=== PATIENT | male | born 1980 | race Caucasian/White ===

== ENCOUNTER 2017-04-17 18:17 | Emergency (ER) | payer OTHER ==
[2017-04-17 18:25] VITALS: BP 125/83; PULSE 81; TEMP 98.4; BMI 28.1
[2017-04-17] MEDS ORDERED: ONDANSETRON 4 MG/2 ML VIAL IVPUSH STA ×2 (20:02→21:39)
[2017-04-17] MEDS ORDERED: PANTOPRAZOLE SODIUM 40 MG in SODIUM CHLORIDE 100 ML IVPB ONE (20:02)
[2017-04-17] MEDS ORDERED: SODIUM CHLORIDE 1,000 ML IV STA ×2 (20:02→20:03)
--- NOTE | 2017-04-17 20:03 | PDOC ---
History of Present Illness - General History Source: Patient Exam Limitations: No Limitations - History of Present Illness Initial Comments: 04/17/17 20:41 The patient is a 37 year old male with significant past medical history of percocet use, hypertension, right foot tumor, diverticulitis, IBS, gastric ulcers, herniated disc, depression who presents to the ED for 3 weeks of abdominal pain, nausea and vomiting. Patient describes pain as sharp, bloating and 9/10 with associated fever, chills, and hot flashes. States he noted some bright red blood per rectum. Denies diarrhea. Patient reports he is visiting from [place] and just arrived here 4 days ago. He also states he plans on going to [facility] in 9 days. Patient also reports 2 weeks ago he developed SOB and chest pain, which he describes as someone sitting on my chest that lasted for about 5 minutes. He reports associated left arm numbness. States at that time, he went to the hospital in [place], where he had x-rays done and was told nothing was wrong. Patient reports he no longer has the chest pain, SOB and left arm numbness. Patient reports 8 months ago he was prescribed percocet 2 tablets every 6-8 hours from his doctor in [place]. States he has been trying to avoid the percocet and since February, he was prescribed norco. However, he is still experiencing symptoms of withdraw. Allergies: naproxen, NSAIDS, compazine Social History: Current smoker (ppd for 16 years). 1g prescription marijuana daily. Denies any other recreational drug use. Denies etoh use. Past Surgical History: 8 inch colon reduction PMD in [place] <Nadege Mccarthy - Last Filed: 04/17/17 20:46> - General History Source: Patient <Anshu Reinoso - Last Filed: 04/17/17 22:29> - General Chief Complaint: Chest Pain Stated Complaint: CHEST PAIN Time Seen by Provider: 04/17/17 20:01 Past History <Nadege Mccarthy - Last Filed: 04/17/17 20:46> - Past Medical History Cancer: (TUMOR RT FOOT) GI Disorders: Yes (diverticulitis, ulcer, IBS) Other medical history: PERCOCET USE - Surgical History Abdominal Surgery: Yes (colon sx,) - Psycho/Social/Smoking Cessation Hx Suicidal Ideation: No Smoking History: Current every day smoker Number of Cigarettes Smoked Daily: 20 Information on smoking cessation initiated: Yes 'Breaking Loose' booklet given: 04/17/17 Hx Alcohol Use: No Drug/Substance Use Hx: No Substance Use Type: None <Anshu Reinoso - Last Filed: 04/17/17 22:29> - Past Medical History Allergies/Adverse Reactions: Allergies Allergy/AdvReac Type Severity Reaction Status Date / Time naproxen Allergy Verified 04/17/17 18:25 NSAIDS (Non-Steroidal Allergy Verified 04/17/17 18:25 Anti-Inflamma prochlorperazine Allergy Verified 04/17/17 18:25 [From Compazine] prochlorperazine edisylate Allergy Verified 04/17/17 18:25 [From Compazine] prochlorperazine maleate Allergy Verified 04/17/17 18:25 [From Compazine] Home Medications: Ambulatory Orders Ondansetron [Zofran *Odt*] 4 mg SL TID #30 od.tablet 04/17/17 Oxycodone HCl/Acetaminophen [Percocet 10-325 mg Tablet] 1 each PO Q4HWA #10 tablet MDD 4 04/17/17 Pantoprazole Sodium [Protonix -] 40 mg PO DAILY 04/17/17 Review of Systems - Review of Systems Able to Perform ROS?: Yes Comments:: 04/17/17 20:41 CONSTITUTIONAL: +fever, chills, hot flashes Absent: no fatigue EYES: Absent: visual changes ENT: Absent: ear pain, no sore throat CARDIOVASCULAR: +chest pain Absent: no palpitations RESPIRATORY: +SOB Absent: cough GI: +abdominal pain, nausea, vomiting, blood per rectum Absent: no constipation, no diarrhea GENITOURINARY: Absent: dysuria, no frequency, no hematuria MUSCULOSKELETAL: Absent: back pain, no arthralgia, no myalgia SKIN: Absent: rash NEURO: +left arm numbness Absent: headache <FrediarrNoman garcíata - Last Filed: 04/17/17 20:46> *Physical Exam - Vital Signs Last Vital Signs Temp Pulse Resp BP Pulse Ox 98.4 F 81 18 125/83 98 04/17/17 18:22 04/17/17 18:22 04/17/17 18:22 04/17/17 18:22 04/17/17 18:22 - Physical Exam Comments: 04/17/17 20:42 GENERAL: Well-appearing, well-nourished. Mild distress. Diaphoretic HEENT: Normocephalic, atraumatic. PERRL, EOM intact. Dry oral mucosa. CARDIOVASCULAR: Normal S1, S2. Regular rate and rhythm. PULMONARY: Clear to auscultation bilaterally. ABDOMEN: Soft, non-distended, Mild diffuse tenderness. No rebound or guarding. Well healed right lower quadrant surgical wound. EXTREMITIES: No gross motor deficits. No gross deformities. SKIN: Warm, dry. No rash NEUROLOGICAL: No focal neurological deficits. <Nadege Mccarthy - Last Filed: 04/17/17 20:46> - Vital Signs Last Vital Signs Temp Pulse Resp BP Pulse Ox 98.4 F 81 18 125/83 98 04/17/17 18:22 04/17/17 18:22 04/17/17 18:22 04/17/17 18:22 04/17/17 18:22 <Anshu Reinoso - Last Filed: 04/17/17 22:29> Heart Score/ECG Review - ECG Impressions Comment:: 04/17/17 20:42 NSR @74bpm <Nadege Mccarthy - Last Filed: 04/17/17 20:46> ED Treatment Course - LABORATORY CBC & Chemistry Diagram: 04/17/17 21:15 04/17/17 21:15 <Anshu Reinoso - Last Filed: 04/17/17 22:29> Medical Decision Making - Medical Decision Making 04/17/17 22:29 Dr. Reinoso: The scribe's documentation has been prepared under my direction and personally reviewed by me in its entirery. I confirm that the note above accurately reflects all work, treatment, procedures, and medical decision making performed by me. <Anshu Reinoso - Last Filed: 04/17/17 22:29> *DC/Admit/Observation/Transfer - Attestations Scribe Attestion: 04/17/17 20:42 Documentation prepared by Nadege Mccarthy, acting as medical technologist chemistry for Anshu Reinoso MD/. <Nadege Mccarthy - Last Filed: 04/17/17 20:46> - Discharge Dispostion Admit: No <Anshu Reinoso - Last Filed: 04/17/17 22:29> Diagnosis at time of Disposition: Abdominal pain Qualifiers: Abdominal location: generalized Qualified Code(s): R10.84 - Generalized abdominal pain - Discharge Dispostion Disposition: HOME Condition at time of disposition: Stable - Prescriptions Prescriptions: Oxycodone HCl/Acetaminophen [Percocet 10-325 mg Tablet] 1 each PO Q4HWA #10 tablet MDD 4 Ondansetron [Zofran *Odt*] 4 mg SL TID #30 od.tablet - Referrals Referrals: Leif Glasgow MD [Staff Physician] - - Patient Instructions Printed Discharge Instructions: DI for Abdominal Pain-Adult
[2017-04-17] MEDS ORDERED: PANTOPRAZOLE SODIUM 100 ML IVPB ONE (20:15)
[2017-04-17] MEDS ORDERED: ONDANSETRON 4 MG/2 ML VIAL ONE ×2 (20:15→21:40)
[2017-04-17] MEDS ORDERED: morphine CARPU-JECT 2 MG/1 ML DISP.SYRIN IVPUSH ONE (20:24)
[2017-04-17] MEDS ORDERED: morphine CARPU-JECT 2 MG/1 ML DISP.SYRIN ONE (20:38)
[2017-04-17 21:31] LABS: BASOPHIL 0.5 % (0-2.0); EOSINOPHIL 2.7 % (0-4.5); MCH 31.5 pg (25.7-33.7); MCHC 34.4 g/dl (32.0-35.9); MEAN CELL VOLUME 91.6 fl (80-96); MEAN PLT VOLUME 9.3 fl (7.5-11.1); PLATELET COUNT 156 K/MM3 (134-434); WHITE BLOOD COUNT 6.8 K/mm3 (4.0-10.0)
[2017-04-17 21:53] LABS: INR 0.95 (0.82-1.09); PROTHROMBIN TIME (PATIENT) 10.4 SEC (9.98-11.88)
[2017-04-17 22:17] LABS: ALBUMIN 3.9 g/dl (3.4-5.0); AMYLASE 54 U/L (25-115); ANION GAP 11 (8-16); CALCIUM 8.9 mg/dL (8.5-10.1); CO2 28 mmol/L (21-32); CREATININE 0.8 mg/dL (0.7-1.3); GLUCOSE,RANDOM 95 mg/dL (74-106); MAGNESIUM 2.2 mg/dL (1.8-2.4); SGOT/AST 24 U/L (15-37); SGPT/ALT 42 U/L (12-78)
[2017-04-17 22:19] LABS: ALK PHOS 61 U/L (45-117); BILIRUBIN,TOTAL 0.5 mg/dL (0.2-1.0); TOT PROT 7.2 g/dl (6.4-8.2)
[2017-04-17 22:29] LABS: URINE APPEARANCE CLEAR; URINE BILIRUBIN NEGATIVE (NEGATIVE); URINE BLOOD NEGATIVE (NEGATIVE); URINE COLOR LTYELLOW; URINE GLUCOSE (UA) NEGATIVE (NEGATIVE); URINE KETONE TRACE (NEGATIVE); URINE LEUK ESTERASE NEGATIVE (NEGATIVE); URINE NITRITE NEGATIVE (NEGATIVE); URINE PROTEIN NEGATIVE (NEGATIVE); URINE UROBILINOGEN NEGATIVE E.U./dl (0.2-1.0)
[2017-04-17 22:38] LABS: URINE MARIJUANA THC POSITIVE ng/ml (CUTOFF=50)
--- NOTE | 2017-04-18 17:15 | EKG ---
Test Reason : Blood Pressure : / mmHG Vent. Rate : 074 BPM Atrial Rate : 074 BPM P-R Int : 164 ms QRS Dur : 094 ms QT Int : 388 ms P-R-T Axes : 016 004 012 degrees QTc Int : 430 ms NORMAL SINUS RHYTHM NORMAL ECG NO PREVIOUS ECGS AVAILABLE Confirmed by MD NIKO, VANE ([id number]) on 04/18/2017 5:14:42 PM Referred By: Confirmed By:VANE POPE MD
== END 2017-04-17 22:57 | disposition home or self-care (01) ==
LOC: JER 18:17
PROC: 3E0337Z Introduction of Electrolytic and Water Balance Substance into Peripheral Vein, Percutaneous Approach (ICD-10-PCS; principal; 2017-04-17)
PROC: 3E033GC Introduction of Other Therapeutic Substance into Peripheral Vein, Percutaneous Approach (ICD-10-PCS; 2017-04-17)
PROC: 3E033GC Introduction of Other Therapeutic Substance into Peripheral Vein, Percutaneous Approach (ICD-10-PCS; 2017-04-17)
PROC: 3E033NZ Introduction of Analgesics, Hypnotics, Sedatives into Peripheral Vein, Percutaneous Approach (ICD-10-PCS; 2017-04-17)
PROC: 3E033NZ Introduction of Analgesics, Hypnotics, Sedatives into Peripheral Vein, Percutaneous Approach (ICD-10-PCS; 2017-04-17)
DX: R10.84 Generalized abdominal pain (principal)
CPT/HCPCS: 36415; 80053; 80307; 81003; 82009; 82150; 83690; 83735; 85025; 85610; 87086; 93005; 93010; 99283-25